=== PATIENT | female | born 1955 | race Caucasian/White ===

== ENCOUNTER 2019-01-27 09:00 | Day surgery (SDC) | payer MEDICARE, OTHER ==
[2019-01-27 11:27] LABS: POTASSIUM 7.4 mmol/L (3.5-5.1)
[2019-01-27 12:05] LABS: POTASSIUM 7.5 mmol/L (3.5-5.1)
== END 2019-01-27 12:10 | disposition short-term general hospital (02) ==
LOC: GIL 09:00
DX: R19.4 Change in bowel habit (principal); Z53.09 Procedure and treatment not carried out because of other contraindication; R53.1 Weakness
CPT/HCPCS: 82962; 84132; 93005

== ENCOUNTER 2019-01-27 12:17 | Inpatient (IN) | payer MEDICARE, OTHER ==
[2019-01-27 13:11] LABS: ADD MAN DIFF? NO
[2019-01-27] MEDS: ALBUTEROL 0.5% (NEB) 2.5 MG/0.5 ML AMP INH (13:13)
[2019-01-27 13:17] LABS: BASOPHILS % 0.7 % (0.0-2.0); EOSINOPHILS # 0.1 10^3/ul (0.0-0.5); EOSINOPHILS % 1.1 % (0.0-7.0); HEMATOCRIT 38.7 % (37.0-47.0); HEMOGLOBIN 12.9 g/dl (12.0-16.0); LYMPHOCYTES # 1.1 10^3/ul (0.8-2.9); LYMPHOCYTES % 19.5 % (15.0-51.0); MEAN CORPUSCULAR HEMOGLOBIN 31.5 pg (29.0-33.0); MEAN CORPUSCULAR HGB CONC 33.3 g/dl (32.0-37.0); MEAN CORPUSCULAR VOLUME 94.4 fl (82.0-101.0); MEAN PLATELET VOLUME 10.4 fl (7.4-10.4); MONOCYTE # 0.5 10^3/ul (0.3-0.9); MONOCYTES % 8.2 % (0.0-11.0); NEUTROPHILS % 70.1 % (39.0-77.0); PLATELET COUNT 130 10^3/UL (140-415); RED CELL DISTRIBUTION WIDTH 16.5 % (11.5-14.5)
[2019-01-27 13:17] LABS: WHITE BLOOD COUNT 5.6 10^3/ul (4.8-10.8)
[2019-01-27] MEDS: NA BICARBONATE 8.4% 50 ML SYG IV (13:23)
[2019-01-27] MEDS: CA CHLORIDE 10% 10 ML SYRINGE IV (13:23)
[2019-01-27 13:36] LABS: ANION GAP 17 (5-13); BLOOD UREA NITROGEN 48 mg/dl (7-20); CALCIUM 8.5 mg/dl (8.4-10.2); CARBON DIOXIDE 28 mmol/L (21-31); CHLORIDE 92 mmol/L (97-110); CREATININE 6.81 mg/dl (0.44-1.00); Estimated GFR 6 mL/min (>60); GLUCOSE 52 mg/dl (70-220); SODIUM 137 mmol/L (135-144)
[2019-01-27 13:40] LABS: POTASSIUM 7.2 mmol/L (3.5-5.1)
[2019-01-27] MEDS ORDERED: ONDANSETRON 4 MG INJ IV ×2 (14:00→18:30)
[2019-01-27] MEDS: DEXTROSE 50% 50 ML SYRINGE IV (14:15)
[2019-01-27] MEDS: INSULIN REGULAR, HUMAN 100 UNIT/1 ML 3ML VIAL IVP (14:18)
[2019-01-27 17:00] LABS: HEPATITIS B SURFACE ANTIGEN NEGATIVE (NEGATIVE)
[2019-01-27] MEDS ORDERED: HYDROCODONE/APAP (5/325) TAB PO (18:30)
[2019-01-27] MEDS ORDERED: NACL 0.9% 3 ML SYG IV (18:30)
[2019-01-27] MEDS ORDERED: DOCUSATE SODIUM 100 MG CAP PO (18:30)
[2019-01-27] MEDS ORDERED: ACETAMINOPHEN 325 MG TAB PO (18:30)
[2019-01-27] MEDS: hydrALAzine 20 MG INJ IV (18:35)
[2019-01-27 19:24] LABS: POTASSIUM 4.4 mmol/L (3.5-5.1)
[2019-01-27] MEDS: MYCOPHENOLATE MOFETIL 500 MG TABLET PO (21:00)
[2019-01-27] MEDS: ACETAMINOPHEN 325 MG TAB PO (22:30)
[2019-01-27] MEDS: HEPARIN 5,000 UNIT/1 ML VIAL SC (22:38)
[2019-01-28 01:09] LABS: POTASSIUM 4.1 mmol/L (3.5-5.1)
[2019-01-28] MEDS: PANTOPRAZOLE (EC) 40 MG TAB PO (05:51)
[2019-01-28] MEDS: HEPARIN 5,000 UNIT/1 ML VIAL SC ×2 (05:53→17:03)
[2019-01-28] MEDS: LEVOTHYROXINE 100 MCG TAB PO (06:03)
[2019-01-28 06:07] LABS: ANION GAP 9 (5-13); BLOOD UREA NITROGEN 22 mg/dl (7-20); CALCIUM 8.6 mg/dl (8.4-10.2); CARBON DIOXIDE 31 mmol/L (21-31); CHLORIDE 100 mmol/L (97-110); CREATININE 3.55 mg/dl (0.44-1.00); Estimated GFR 13 mL/min (>60); GLUCOSE 73 mg/dl (70-220); POTASSIUM 4.6 mmol/L (3.5-5.1); SODIUM 140 mmol/L (135-144)
[2019-01-28] MEDS: SEVELAMER CARBONATE 0.8 GM PKT PO ×3 (08:09→17:05)
[2019-01-28] MEDS: MULTIVIT/CA CARB/B CMPLX/FA TAB PO (08:09)
[2019-01-28] MEDS: predniSONE 5 MG TAB PO (08:09)
[2019-01-28] MEDS: hydrALAzine 20 MG INJ IV ×2 (08:10→17:01)
[2019-01-28] MEDS: DIPHENOXYLATE/ATROPINE TAB PO (08:38)
[2019-01-28] MEDS ORDERED: DEXTROSE 50% 50 ML SYRINGE IV ×2 (11:00)
[2019-01-28] MEDS ORDERED: GLUCOSE GEL 15 GRAM TUBE BUCCAL (11:00)
[2019-01-28] MEDS ORDERED: GLUCOSE GEL 15 GRAM TUBE PO ×2 (11:00)
[2019-01-28] MEDS ORDERED: GLUCAGON 1 MG INJ IM (11:00)
[2019-01-28] MEDS: MYCOPHENOLATE MOFETIL 500 MG TABLET PO (12:45)
[2019-01-28] MEDS: INSULIN ASPART [NOVOLOG] 3 ML PEN SC ×2 (12:47→17:14)
[2019-01-29] MEDS ORDERED: ACCU-CHEK XX (02:00)
[2019-02-03] MEDS ORDERED: ALENDRONATE 70 MG TAB PO (06:00)
== END 2019-01-28 20:28 | disposition home or self-care (01) | DRG 640 ==
LOC: E/R 12:17 → 6WM 13:37
PROVIDERS: Internal Medicine Nephrology
PROC: 5A1D70Z Performance of Urinary Filtration, Intermittent, Less than 6 Hours Per Day (ICD-10-PCS; principal; 2019-01-27)
DX: E87.5 Hyperkalemia (principal); N18.6 End stage renal disease; I12.0 Hypertensive chronic kidney disease with stage 5 chronic kidney disease or end stage renal disease; Z99.2 Dependence on renal dialysis; R53.83 Other fatigue; E78.5 Hyperlipidemia, unspecified; M06.9 Rheumatoid arthritis, unspecified; E03.9 Hypothyroidism, unspecified; M32.9 Systemic lupus erythematosus, unspecified; Z91.11 Patient's noncompliance with dietary regimen
CPT/HCPCS: 80048; 82962; 84132; 85025; 87340; 90935; 93005; 94664; 96374; 96375; 99285-25